=== PATIENT | female | born 1980 | race African-American/Black ===

== ENCOUNTER 2022-04-13 12:52 | Outpatient (CLI) | payer OTHER, SELFPAY ==
[2022-04-13 19:18] LABS: Alanine Aminotransferase 21 U/L (6-35); Albumin Level 4.3 g/dL (3.5-5.1); Alkaline Phosphatase 93 U/L (38-126); Anion Gap 9 mmol/L (8-16); Aspartate Amino Transferase 27 U/L (14-36); Bilirubin,Total 0.3 mg/dL (0.2-1.3); Blood Urea Nitrogen 11 mg/dL (7-17); Calcium 9.2 mg/dL (8.4-10.2); Carbon Dioxide 27 mmol/L (22-30); Chloride 104 mmol/L (98-107); Cholesterol 220 mg/dL (0-200); Estimated Glomerular Filt Rate > 60; Glucose 103 mg/dL (65-110); HDL Direct 70 mg/dL; Potassium 4.3 mmol/L (3.4-5.0); Sodium 140 mmol/L (137-145); Triglycerides 84 mg/dL (<150)
[2022-04-13 19:29] LABS: LDL Cholesterol Direct 99 mg/dL
[2022-04-13 19:34] LABS: Free T4 Free Thyroxine 1.03 ng/mL (0.78-2.19)
[2022-04-13 19:42] LABS: Basophils Percent Auto 0.5 % (0.2-1.2); Eosinophils Percent Auto 0.5 % (0-4.4); Hematocrit 41.7 % (37.0-47.0); Immature Granulocyte Absolute 0.03 K/mm3 (0.00-0.031); Immature Granulocyte Percent A 0.4 % (0-0.5); Lymphocytes Absolute Auto 1.99 K/mm3 (0.9-3.2); Lymphocytes Percent Auto 23.4 % (18.3-44.2); Mean Corpuscular HGB Conc 31.2 g/dl (32-36); Mean Corpuscular Hemoglobin 28.1 pg (26-34); Mean Corpuscular Volume 90.1 fl (80-100); Mean Platelet Volume 12.9 fl (7.4-10.4); Monocytes Absolute Auto 0.5 K/mm3 (0.1-0.6); Neutrophils Absolute Auto 5.9 K/mm3 (1.3-6.7); Neutrophils Percent Auto 69.2 % (45.5-73.1); Platelet Count Result 243 k/mm3 (150-375); Red Blood Count 4.63 M/mm3 (4.2-5.4); Red Cell Distribution Width 13.2 % (11.5-14.5); White Blood Count 8.5 K/mm3 (4.5-10.0)
[2022-04-13 19:47] LABS: Hemoglobin A1C 5.8 % (<5.7)
[2022-04-13 20:11] LABS: Vitamin D 25 Hydroxy < 12.8 ng/mL
== END 2022-04-13 12:53 | disposition home or self-care (01) ==
LOC: ANHGOSHLAB 12:55
PROVIDERS: PCP Family Medicine; Visit Provider Family Medicine
DX: E55.9 Vitamin D deficiency, unspecified (principal); Z13.220 Encounter for screening for lipoid disorders; R73.9 Hyperglycemia, unspecified; R53.83 Other fatigue
CPT/HCPCS: 36415; 80053; 80061; 82306; 83036; 84439; 84443; 85025

== ENCOUNTER → 2022-05-11 11:49 | Outpatient (CLI) | payer OTHER, SELFPAY ==
--- NOTE | ~2022-05-11 | XR_ITS ---
EXAM: XR knee LT min 4V DATE: 05/11/2022 12:00 HISTORY: M25.562 - Pain in left knee, lateral . COMPARISON: None available. FINDINGS: Normal mineralization. No fracture or dislocation. No lytic or blastic lesion. Loss of nor mal valgus alignment. Severe medial joint space narrowing. Moderate tricompartmental osteophytosis. Q uadriceps enthesopathy. Bilateral meniscal calcification versus loose joint body or fabella. No erosi on or periosteal change. Soft tissues within normal limits. IMPRESSION: Tricompartmental left knee osteoarthritis, severe in the medial compartment. Reviewed, dictated and finalized at location [facility]. IMPRESSION: Tricompartmental left knee osteoarthritis, severe in the medial com partment.
== END ==
PROVIDERS: PCP Family Medicine; Visit Provider Family Medicine
DX: M25.562 Pain in left knee (principal); M17.12 Unilateral primary osteoarthritis, left knee
CPT/HCPCS: 73564

== ENCOUNTER 2022-08-23 12:41 | Outpatient (CLI) | payer OTHER, SELFPAY ==
[2022-08-23 20:24] LABS: Alanine Aminotransferase 25 U/L (6-35); Alkaline Phosphatase 103 U/L (38-126); Anion Gap 1 mmol/L (8-16); Aspartate Amino Transferase 56 U/L (14-36); Bilirubin,Total 0.3 mg/dL (0.2-1.3); Blood Urea Nitrogen 7 mg/dL (7-17); Calcium 8.8 mg/dL (8.4-10.2); Carbon Dioxide 35 mmol/L (22-30); Chloride 100 mmol/L (98-107); Estimated Glomerular Filt Rate > 60; Glucose 100 mg/dL (65-110); Sodium 136 mmol/L (137-145)
[2022-08-23 20:49] LABS: Basophils Percent Auto 0.3 % (0.2-1.2); Eosinophils Absolute Auto 0.1 K/mm3 (0-0.3); Eosinophils Percent Auto 0.7 % (0-4.4); Hemoglobin 12.4 g/dL (12.0-15.0); Immature Granulocyte Absolute 0.03 K/mm3 (0.00-0.031); Immature Granulocyte Percent A 0.3 % (0-0.5); Lymphocytes Percent Auto 24.9 % (18.3-44.2); Mean Corpuscular Hemoglobin 27.2 pg (26-34); Mean Corpuscular Volume 87.7 fl (80-100); Mean Platelet Volume 11.9 fl (7.4-10.4); Monocytes Absolute Auto 0.5 K/mm3 (0.1-0.6); Monocytes Percent Auto 5.4 % (2.6-8.5); Neutrophils Absolute Auto 6.3 K/mm3 (1.3-6.7); Neutrophils Percent Auto 68.4 % (45.5-73.1); Platelet Count Result 288 k/mm3 (150-375); Red Blood Count 4.56 M/mm3 (4.2-5.4); Red Cell Distribution Width 13.2 % (11.5-14.5); White Blood Count 9.2 K/mm3 (4.5-10.0)
[2022-08-23 20:55] LABS: Vitamin D 25 Hydroxy 14.2 ng/mL
== END 2022-08-23 12:42 | disposition home or self-care (01) ==
LOC: ANHGOSHLAB 12:43
PROVIDERS: PCP Family Medicine; Visit Provider Family Medicine
DX: M79.89 Other specified soft tissue disorders (principal); E55.9 Vitamin D deficiency, unspecified
CPT/HCPCS: 36415; 80053; 82306; 85025

== ENCOUNTER 2022-08-30 08:01 | Outpatient (CLI) | payer OTHER, SELFPAY ==
--- NOTE | 2022-09-20 17:09 | WPDHOMESLEEP ---
Sleep Study - Home Unattended Date of Study: 08/30/22 Ordering Provider: Janeen Johnson DO Interpreting Provider: Janeen Johnson DO Home Sleep Study Type: Apnea Link Air Height: 1.7 m Weight: 195.045 kg Body Mass Index: 67.3 Neck Circumference (inches): 17.5 [place]: 2 Reason for Sleep Study Morning headaches, daytime hypersomnia Sleep History The patient is a 41-year-old female with chronic left knee pain, leg swelling, morbid obesity and seasonal allergy he has had a sleep study ordered for evaluation of sleep apnea. The patient occasionally awakens from sleep short of breath. She rarely awakens at night with heartburn, belching or cough. She constantly snores and it is frequently loud enough that others complain. She constantly has trouble sleeping when she has a cold. She occasionally wakes up gasping for air throughout the night. She occasionally has breathing problems at night observed by herself or others. She denies sweating excessively at night. She denies having heart palpitations or irregular heartbeats during the night. She occasionally falls asleep during the day but never while driving. He denies sleep paralysis, cataplexy and hypnagogic / hypnopompic hallucinations. She occasionally has trouble at school or work due to sleepiness. She denies feeling afraid of going to sleep. She denies having nightmares. She occasionally remembers her dreams. She constantly has thoughts racing through her mind. She occasionally feels sad or depressed. She constantly has anxiety. She frequently has muscular tension. She occasionally notices parts of her body jerk. She denies kicking during the night. She denies having crawling and aching feelings in her legs. She rarely has leg pain during the night. She constantly grinds her teeth during sleep but rarely awakens with morning jaw pain. She is rarely bothered by pain during the day and rarely awakened by pain during the night. She constantly wakes up feeling stiff in the morning. She occasionally wakes up with sore achy muscles. She constantly wakes up with pain in the neck, spine and other joints. The patient goes to bed at 10:00 p.m. on weekdays and at midnight on the weekends. It takes her 2 hours to fall asleep. She wakes up 4-6 times throughout the night for unknown reasons. She is able to fall back asleep within 15 minutes. She wakes up at 8:00 a.m. on weekdays and weekends. She typically gets 6 hours of sleep per night. She will stay in bed for 20-30 minutes after waking up in the morning. The patient denies consuming any caffeinated beverages within 2 hours of bedtime. She does not engage in physical exercise before bedtime. She will read and watch television before falling asleep. She will take naps in the afternoon or the evening but they are not refreshing. She does not consume any caffeinated beverages throughout the day. She denies tobacco, alcohol and recreational drug use. [facility] Past Medical History Medical History Anxiety Headache Ulcer Surgical History Surgical History Delivery by section History of laparoscopic cholecystectomy Family History Family History Mother Hypertension Cerebrovascular accident Sibling Diabetes mellitus Hypertension Other Asthma Social History Social History Smoking status: Unknown if ever smoked Alcohol intake: never Substance use type: does not use Lack of Transportation: No Lack of Food: Never True Current Housing: I Have Housing Concerned About Future Housing: No Difficulty Paying Gas/Electric Bills: No Difficulty Paying for Meds: No Currently Unemployed: No Education: High School Diploma/GED Difficulty w/ Childcare or Family Care: No
[2022-09-20 17:24] VITALS: BMI 67.3
== END 2022-09-01 11:23 | disposition home or self-care (01) ==
LOC: ANHCSM 08:02
PROVIDERS: PCP Family Medicine; Visit Provider Family Medicine
DX: G47.10 Hypersomnia, unspecified (principal)
CPT/HCPCS: 95806

== ENCOUNTER 2022-10-26 08:13 | Outpatient (CLI) | payer OTHER, SELFPAY ==
--- NOTE | 2022-11-22 13:38 | WPDSLEEPSTUD ---
Sleep Study Date of Study: 10/26/22 Ordering Provider: Janeen Johnson DO Interpreting Physician: Janeen Johnson DO Sleep Study Type: Polysomnogram Height: 1.7 m Weight: 195.045 kg Body Mass Index: 67.3 Neck Circumference (inches): 17.5 [place]: 2 Reason for Sleep Study The patient had an ApneaLink home sleep test on 08/30/2022 that showed an AHI of 4. Recommended in lab study for further evaluation. Sleep History The patient is a 41-year-old female with chronic left knee pain, leg swelling, morbid obesity and seasonal allergy he has had a sleep study ordered for evaluation of sleep apnea.? The patient occasionally awakens from sleep short of breath.? She rarely awakens at night with heartburn, belching or cough.? She constantly snores and it is frequently loud enough that others complain.? She constantly has trouble sleeping when she has a cold.? She occasionally wakes up gasping for air throughout the night.? She occasionally has breathing problems at night observed by herself or others.? She denies sweating excessively at night.? She denies having heart palpitations or irregular heartbeats during the night.? She occasionally falls asleep during the day but never while driving.? He denies sleep paralysis, cataplexy and hypnagogic / hypnopompic hallucinations.? She occasionally has trouble at school or work due to sleepiness.? She denies feeling afraid of going to sleep.? She denies having nightmares.? She occasionally remembers her dreams.? She constantly has thoughts racing through her mind.? She occasionally feels sad or depressed.? She constantly has anxiety.? She frequently has muscular tension.? She occasionally notices parts of her body jerk.? She denies kicking during the night.? She denies having crawling and aching feelings in her legs.? She rarely has leg pain during the night.? She constantly grinds her teeth during sleep but rarely awakens with morning jaw pain.? She is rarely bothered by pain during the day and rarely awakened by pain during the night.? She constantly wakes up feeling stiff in the morning.? She occasionally wakes up with sore achy muscles.? She constantly wakes up with pain in the neck, spine and other joints. The patient goes to bed at 10:00 p.m. on weekdays and at midnight on the weekends.? It takes her 2 hours to fall asleep.? She wakes up 4-6 times throughout the night for unknown reasons.? She is able to fall back asleep within 15 minutes.? She wakes up at 8:00 a.m. on weekdays and weekends.? She typically gets 6 hours of sleep per night.? She will stay in bed for 20-30 minutes after waking up in the morning.? The patient denies consuming any caffeinated beverages within 2 hours of bedtime.? She does not engage in physical exercise before bedtime.? She will read and watch television before falling asleep.? She will take naps in the afternoon or the evening but they are not refreshing. She does not consume any caffeinated beverages throughout the day.? She denies tobacco, alcohol and recreational drug use. [facility] Past Medical History Medical History Anxiety Headache Ulcer Surgical History Surgical History Delivery by section History of laparoscopic cholecystectomy Family History Family History Mother Hypertension Cerebrovascular accident Sibling Diabetes mellitus Hypertension Other Asthma Social History Social History Smoking status: Unknown if ever smoked Alcohol intake: never Substance use type: does not use Lack of Transportation: No Lack of Food: Never True Current Housing: I Have Housing Concerned About Future Housing: No Difficulty Paying Gas/Electric Bills: No Difficulty Paying for Meds: No Currently Unemployed: No Education:
[2022-11-22 13:48] VITALS: BMI 67.3
== END 2022-10-27 08:11 | disposition home or self-care (01) ==
LOC: ANHCSM 08:14
PROVIDERS: PCP Family Medicine; Visit Provider Family Medicine
DX: G47.33 Obstructive sleep apnea (adult) (pediatric) (principal); G47.10 Hypersomnia, unspecified
CPT/HCPCS: 95810